=== PATIENT | female | born 1960 | race Caucasian/White ===

== ENCOUNTER 2018-04-19 04:30 | Emergency (ER) | payer MEDICARE, OTHER ==
[2018-04-19 05:59] LABS: ADD MAN DIFF? NO
[2018-04-19 06:01] LABS: BASO # 0.1 x10^3/uL (0.0-0.2); BASO % 1 % (0-3); EOS # 0.2 x10^3/uL (0.0-0.7); EOS % 3 % (0-3); HEMATOCRIT 34.9 % (36.0-47.0); HEMOGLOBIN 12.2 g/dL (12.0-15.5); LYMPH # 1.3 x10^3/uL (1.0-4.8); LYMPH % 23 % (24-48); MEAN CORPUSCULAR HEMOGLOBIN 34 pg (25-35); MEAN CORPUSCULAR HGB CONC 35 g/dL (31-37); MEAN CORPUSCULAR VOLUME 98 fL (79-100); MONO # 0.5 x10^3/uL (0.0-1.1); MONO % 8 % (0-9); NEUT # 3.8 x10^3uL (1.8-7.7); NEUT % 66 % (31-73); PLATELET COUNT 241 x10^3/uL (140-400); RED BLOOD COUNT 3.58 x10^6/uL (3.50-5.40); RED CELL DISTRIBUTION WIDTH 12.9 % (11.5-14.5); WHITE BLOOD COUNT 5.8 x10^3/uL (4.0-11.0)
[2018-04-19 06:17] LABS: ANION GAP 8 (6-14); BLOOD UREA NITROGEN 9 mg/dL (7-20); BUN/CREATININE RATIO 9 (6-20); CALCIUM 9.5 mg/dL (8.5-10.1); CARBON DIOXIDE 28 mmol/L (21-32); CHLORIDE 99 mmol/L (98-107); GFR 57.4; GLUCOSE 102 mg/dL (70-99); POTASSIUM 4.1 mmol/L (3.5-5.1); SODIUM 135 mmol/L (136-145)
[2018-04-19 06:23] LABS: ALBUMIN 3.6 g/dL (3.4-5.0); ALBUMIN/GLOBULIN RATIO 1.1 (1.0-1.7); ALK PHOS 130 U/L (46-116); ALT (SGPT) 27 U/L (14-59); AST (SGOT) 16 U/L (15-37); LIPASE 114 U/L (73-393); TOTAL BILIRUBIN 0.1 mg/dL (0.2-1.0)
[2018-04-19 06:25] LABS: TROPONINI < 0.017 ng/mL (0.000-0.055)
[2018-04-19] MEDS ORDERED: CONTRAST GIVEN. MC (06:30)
[2018-04-19] MEDS: IOHEXOL 300 MG/ML 100ML VIAL. IV (06:57)
[2018-04-19] MEDS: DICYCLOMINE 20 MG/2 ML AMPUL. IM (07:08)
[2018-04-19 07:46] LABS: BILIRUBIN,URINE NEGATIVE (NEG); CLARITY,URINE CLEAR; COLOR,URINE YELLOW; GLUCOSE,URINE NEGATIVE (NEG); NITRITE,URINE NEGATIVE (NEG); PROTEIN,URINE NEGATIVE (NEG-TRACE); UROBILINOGEN,URINE 0.2 mg/dL (0.2 mg/dL)
[2018-04-19 08:06] LABS: SQUAMOUS EPITHELIAL CELL,UR FEW /LPF
[2018-04-19 08:07] LABS: BACTERIA,URINE FEW /HPF (0-FEW); RBC,URINE 0 /HPF (0-2); WBC,URINE OCC /HPF (0-4)
== END 2018-04-19 09:42 | disposition home or self-care (01) ==
LOC: ER 04:30
DX: R10.84 Generalized abdominal pain (principal); R19.7 Diarrhea, unspecified; R11.2 Nausea with vomiting, unspecified; I11.9 Hypertensive heart disease without heart failure; E11.9 Type 2 diabetes mellitus without complications; K58.9 Irritable bowel syndrome, unspecified; Z90.49 Acquired absence of other specified parts of digestive tract; Z90.710 Acquired absence of both cervix and uterus; Z95.0 Presence of cardiac pacemaker; E11.43 Type 2 diabetes mellitus with diabetic autonomic (poly)neuropathy; K31.84 Gastroparesis; Z88.8 Allergy status to other drugs, medicaments and biological substances; Z88.4 Allergy status to anesthetic agent; Z91.040 Latex allergy status; Z88.5 Allergy status to narcotic agent; Z91.018 Allergy to other foods
CPT/HCPCS: 36415; 74177; 80053; 81001; 83690; 84484; 85025; 96372; 99285; J0500; Q9967

== ENCOUNTER 2018-05-15 07:00 | Emergency (ER) | payer MEDICARE, OTHER ==
[2018-05-15 07:27] LABS: BILIRUBIN,URINE NEGATIVE (NEG); CLARITY,URINE CLEAR; COLOR,URINE YELLOW; GLUCOSE,URINE NEGATIVE (NEG); NITRITE,URINE NEGATIVE (NEG); PH,URINE 6.5; PROTEIN,URINE NEGATIVE (NEG-TRACE); UROBILINOGEN,URINE 0.2 mg/dL (0.2 mg/dL)
[2018-05-15 07:36] LABS: BACTERIA,URINE MODERATE /HPF (0-FEW); SQUAMOUS EPITHELIAL CELL,UR MOD /LPF; WBC,URINE 20-40 /HPF (0-4)
[2018-05-15 07:37] LABS: RBC,URINE 0 /HPF (0-2)
[2018-05-15] MEDS: ONDANSETRON PF 4 MG/2 ML VIAL. IV (07:50)
[2018-05-15] MEDS: IV NORMAL SALINE 500ML BAG 500 ML IV (07:51)
[2018-05-15 07:56] LABS: ADD MAN DIFF? NO
[2018-05-15 08:01] LABS: BASO % 1 % (0-3); EOS # 0.1 x10^3/uL (0.0-0.7); EOS % 2 % (0-3); HEMATOCRIT 35.3 % (36.0-47.0); HEMOGLOBIN 12.2 g/dL (12.0-15.5); LYMPH % 15 % (24-48); MEAN CORPUSCULAR HEMOGLOBIN 34 pg (25-35); MEAN CORPUSCULAR HGB CONC 35 g/dL (31-37); MEAN CORPUSCULAR VOLUME 97 fL (79-100); MONO # 0.4 x10^3/uL (0.0-1.1); MONO % 7 % (0-9); NEUT # 5.1 x10^3uL (1.8-7.7); NEUT % 76 % (31-73); PLATELET COUNT 223 x10^3/uL (140-400); RED BLOOD COUNT 3.62 x10^6/uL (3.50-5.40); RED CELL DISTRIBUTION WIDTH 12.3 % (11.5-14.5); WHITE BLOOD COUNT 6.7 x10^3/uL (4.0-11.0)
[2018-05-15 08:05] LABS: ANION GAP 7 (6-14); BLOOD UREA NITROGEN 9 mg/dL (7-20); BUN/CREATININE RATIO 9 (6-20); CARBON DIOXIDE 29 mmol/L (21-32); CHLORIDE 106 mmol/L (98-107); GFR 57.4; GLUCOSE 118 mg/dL (70-99); SODIUM 142 mmol/L (136-145)
[2018-05-15 08:11] LABS: ALBUMIN 3.4 g/dL (3.4-5.0); ALK PHOS 111 U/L (46-116); ALT (SGPT) 26 U/L (14-59); AST (SGOT) 16 U/L (15-37); TOTAL BILIRUBIN 0.3 mg/dL (0.2-1.0); TOTAL PROTEIN 6.8 g/dL (6.4-8.2)
[2018-05-15] MEDS ORDERED: CONTRAST GIVEN. MC (08:15)
[2018-05-15] MEDS: IOHEXOL 300 MG/ML 100ML VIAL. IV (08:35)
== END 2018-05-15 10:22 | disposition home or self-care (01) ==
LOC: ER 07:00
DX: N39.0 Urinary tract infection, site not specified (principal); R11.2 Nausea with vomiting, unspecified; R19.7 Diarrhea, unspecified; E11.9 Type 2 diabetes mellitus without complications; I11.9 Hypertensive heart disease without heart failure; K58.9 Irritable bowel syndrome, unspecified; Z90.49 Acquired absence of other specified parts of digestive tract; Z95.0 Presence of cardiac pacemaker; Z90.710 Acquired absence of both cervix and uterus; Z88.5 Allergy status to narcotic agent; Z88.8 Allergy status to other drugs, medicaments and biological substances; Z88.4 Allergy status to anesthetic agent; Z91.040 Latex allergy status
CPT/HCPCS: 36415; 74177; 80053; 81001; 85025; 87086; 96361; 96374; 99285-25; J2405; J7040; Q9967

== ENCOUNTER 2021-08-29 10:52 | Emergency (ER) | payer MEDICARE, OTHER ==
[~2021-08-29] VITALS: Ht 180.3 cm; Wt 132.9 kg
[~2021-08-29 10:52] MED LIST: ARMO150T4 PO; CETI1TAB7 PO; FESO4TAB PO; GABA-585 PO; LAMO100T5 PO; LANS30CA PO; LEVO125T PO; LEVO750T31 PO; METR500T PO; MONT10TA49 PO; ONDA4TAB10 SL; RANI-376 PO; RISP0.5T24 PO; TEMA15CA PO
[2021-08-29 11:09] VITALS: BP 185/87
[2021-08-29] MEDS ORDERED: HYDROmorphone 2 MG/ML VIAL IVP ONE (11:15)
[2021-08-29] MEDS ORDERED: ONDANSETRON PF 4 MG/2 ML VIAL. IVP ONE (11:15)
[2021-08-29] MEDS ORDERED: IV NORMAL SALINE 1000ML BAG 1,000 ML IV SCH (11:15)
--- NOTE | 2021-08-29 11:19 | PHYS DOC ---
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 She reports the pain got worse this morning and is associated with some watery diarrhea. She denies any recent travel, blood in the diarrhea, antibiotic use or hospitalizations. The patient denies vomiting, fever, chills, chest pain, shortness of breath, urinary symptoms, cough, recent trauma, or any other complaints. Review of Systems: Review of Systems: Constitutional: Negative except what was mentioned in HPI. Eyes: Negative except what was mentioned in HPI. HENT: Negative except what was mentioned in HPI. Respiratory: Negative except what was mentioned in HPI. Cardiovascular: Negative except what was mentioned in HPI. GI: Negative except what was mentioned in HPI. : Negative except what was mentioned in HPI. Musculoskeletal: Negative except what was mentioned in HPI. Integument: Negative except what was mentioned in HPI. Neurologic: Negative except what was mentioned in HPI. Heart Score: C/O Chest Pain: No Family History: Family History: Noncontributory Allergies: Allergies: Allergies Coded Allergies Type Severity Reaction Last Updated Verified adhesive tape Allergy Severe blisters 09/21/17 Yes chlorpromazine Allergy Severe Hypotension 04/19/18 Yes latex Allergy Intermediate Rash 04/19/18 Yes nabumetone Allergy Intermediate Constipation, Vomiting, and Itching 04/19/18 Yes pantoprazole Allergy Intermediate Vomiting and itching 04/19/18 Yes thiopental Allergy Intermediate vomiting 04/19/18 Yes propoxyphene Allergy Mild vomiting 04/19/18 Yes codeine Adverse Reaction Intermediate vomit 09/21/17 Yes fentanyl Adverse Reaction Intermediate vomit 09/21/17 Yes morphine Adverse Reaction Intermediate vomit 09/21/17 Yes naloxone Adverse Reaction Intermediate vomit 09/21/17 Yes Physical Exam: PE: Constitutional: No acute distress, non-toxic appearance. HENT: Atraumatic, bilateral external ears normal, nose normal. Eyes: PERRLA, EOMI, conjunctiva normal, no discharge. Neck: Normal range of motion, supple, no stridor. Cardiovascular: Heart rate regular rhythm. 2+ radial pulses Lungs & Thorax: No respiratory distress, symmetrical expansion. Abdomen: Right lower quadrant tenderness palpation, guarding upon palpation of the right lower quadrant Skin: Warm, dry. Extremities: No tenderness, no cyanosis, ROM intact, no edema. Neurologic: Alert and oriented X 3, normal motor function, normal sensory function, no focal deficits noted. Non ataxic gait. GCS 15. Psychologic: Affect normal, judgment normal, mood normal. Current Patient Data: Labs: Laboratory Tests Test 08/29/21 11:05 08/29/21 11:12 08/29/21 11:15 Urine Collection Type Unknown Urine Color Yellow Urine Clarity Clear Urine pH 6.0 (<5.0-8.0) Urine Specific Pat[place] 1.015 (1.000-1.030) Urine Protein Negative mg/dL (NEG-TRACE) Urine Glucose (UA) Negative mg/dL (NEG) Urine Ketones (Stick) Negative mg/dL (NEG) Urine Blood Negative (NEG) Urine Nitrite Negative (NEG) Urine Bilirubin Negative (NEG) Urine Urobilinogen Dipstick 0.2 mg/dL (0.2 mg/dL) Urine Leukocyte Esterase Moderate (NEG) Urine RBC 0 /HPF (0-2) Urine WBC 5-10 /HPF (0-4) Urine Squamous Epithelial Cells Mod /LPF Urine Renal Epithelial Cells Occ /LPF Urine Bacteria 0 /HPF (0-FEW) Bedside Urine HCG, Qualitative Hcg negative (Negative) White Blood Count 5.7 x10^3/uL (4.0-11.0) Red Blood Count 4.08 x10^6/uL (3.50-5.40) Hemoglobin 13.1 g/dL (12.0-15.5) Hematocrit 38.8 % (36.0-47.0) Mean Corpuscular Volume 95 fL (79-100) Mean Corpuscular Hemoglobin 32 pg (25-35) Mean Corpuscular Hemoglobin Concent 34 g/dL (31-37) Red Cell Distribution Width 13.0 % (11.5-14.5) Platelet Count 192 x10^3/uL (140-400) Neutrophils (%) (Auto) 67 % (31-73) Lymphocytes (%) (Auto) 25 % (24-48) Monocytes (%) (Auto) 7 % (0-9) Eosinophils (%) (Auto) 0 % (0-3) Basophils (%) (Auto) 1 % (0-3) Neutrophils # (Auto) 3.8 x10^3/uL (1.8-7.7) Lymphocytes # (Auto) 1.4 x10^3/uL (1.0-4.8) Monocytes # (Auto) 0.4 x10^3/uL (0.0-1.1) Eosinophils # (Auto) 0.0 x10^3/uL (0.0-0.7) Basophils # (Auto) 0.0 x10^3/uL (0.0-0.2) Sodium Level 142 mmol/L (136-145) Potassium Level 4.5 mmol/L (3.5-5.1) Chloride Level 106 mmol/L (98-107) Carbon Dioxide Level 29 mmol/L (21-32) Anion Gap 7 (6-14) Blood Urea Nitrogen 13 mg/dL (7-20) Creatinine 1.2 mg/dL (0.6-1.0) Estimated GFR (Cockcroft-Gault) 46.0 BUN/Creatinine Ratio 11 (6-20) Glucose Level 99 mg/dL (70-99) Calcium Level 9.6 mg/dL (8.5-10.1) Total Bilirubin 0.5 mg/dL (0.2-1.0) Aspartate Amino Transf (AST/SGOT) 21 U/L (15-37) Alanine Aminotransferase (ALT/SGPT) 42 U/L (14-59) Alkaline Phosphatase 107 U/L (46-116) Total Protein 7.4 g/dL (6.4-8.2) Albumin 3.7 g/dL (3.4-5.0) Albumin/Globulin Ratio 1.0 (1.0-1.7) Lipase 39 U/L (73-393) Vital Signs: Vital Signs Date Time Temp Pulse Resp B/P (MAP) Pulse Ox O2 Delivery O2 Flow Rate FiO2 08/29/21 11:31 22 96 Room Air 08/29/21 11:09 98.5 71 16 185/87 (119) 96 Room Air 98.5 Radiology/Procedures: Radiology/Procedures: CT THORAX WO History: Pain. Edema on abdomen CT. Technique: Noncontrast CT of the chest was performed. Coronal and sagittal reconstructions were performed. Exposure: One or more of the following individualized dose reduction techniques were utilized for this examination: 1. Automated exposure control 2. Adjustment of the mA and/or kV according to patient size 3. Use of iterative reconstruction technique. Comparison: None Findings: Chest: Moderate left pleural effusion. Left pleural shunt catheter noted. Left- sided pacemaker. No pathologic lymphadenopathy. Mild left lingular and left lower lobe groundglass linear opacities. Upper abdomen: Prior cholecystectomy. Bones: No pathologic osseous lesions. Impression: 1. Moderate left pleural effusion. Left pleural shunt catheter noted. 2. Lingular and left lower lobe linear groundglass opacities, may represent atelectasis. Recommend correlation for infectious or inflammatory process. Electronically signed by: Tc Hargrove DO (08/29/2021 1:12 PM) CT ABDOMEN+PELVIS W History: Reason: abd pain, hx of multiple abd surgeries / Spl. Instructions: OMNI 300 INJ. 60 MLS / History: Technique: After the administration of intravenous contrast, CT imaging was performed of the abdomen and pelvis. Multiplanar images are reviewed. Exposure: One or more of the following individualized dose reduction techniques were utilized for this examination: 1. Automated exposure control 2. Adjustment of the mA and/or kV according to patient size 3. Use of iterative reconstruction technique. Comparison: May 15, 2018 Findings: Lower chest: Moderate left pleural effusion. Left lower lobe and lingular gr oundglass opacities. Partially imaged left pleural catheter. Abdomen and pelvis: The liver, spleen, and adrenal glands are unremarkable. Fatty infiltration of the pancreas. Prior cholecystectomy. No biliary ductal dilatation for postcholecystectomy state. Patent portal vein. Increased right posterior renal hypodense lesion measures 2.1 x 2.2 cm. No hydronephrosis. No renal calculus. Decompressed urinary bladder. Appendix is not well seen. No evidence of bowel obstruction. No pathologic lymphadenopathy no ascites. Prior hysterectomy. Mild atheromatous plaque throughout the nonaneurysmal abdominal aorta and branch vessels. Bones: Multilevel lumbar spondylosis most prominent T11-T12. Multilevel Schmorl's nodes. Impression: 1. No acute abdominal or pelvic pathology. 2. Moderate left pleural effusion with adjacent groundglass linear opacities. 3. Increased right renal hypodense lesion, may represent complicated cyst. Recommend ultrasound to further evaluate for solid lesion. Electronically signed by: Tc Hargrove DO (08/29/2021 1:22 PM) Course & Med Decision Making: Course & Med Decision Making Objective work-up is as above, not concerning for an acute process. The patient has been told in the past that she has a chronic left pleural effusion. There is no evidence of anything new today. The patient appears stable for discharge home. Patient otherwise had no further complaints. Dilaudid 0.5 mg IV controlled her pain and her vital signs are stable. She was advised to follow- up with her primary care physician next week as well as return to the emergency department if her course changes at home. Departure Departure Impression: Primary Impression: Abdominal pain Disposition: 01 HOME / SELF CARE / HOMELESS Condition: STABLE Referrals: ALAN DORSEY (PCP) Patient Instructions: Abdominal Pain, [id number] Additional Instructions: You were seen in the emergency department for abdominal pain. Your tests did not show any obvious acute cause of your symptoms and your physical exam was non concerning for a dangerous disease process at this time. This however can change early in a disease course. You must return to the ED if you develop any new or worrisome symptoms for another exam. - Make sure to drink plenty of fluids at home - You may take a gentle laxative such as Miralax (over the counter) for bowel comfort. - Avoid drinking alcohol while you are having abdominal pain as this may worsen symptoms. - Return to the ER if you are not able to tolerate water and/or a normal diet, have increased pain or a change in character of your pain, develop a fever (>100.3 F), have nausea, vomiting and/or diarrhea that is unable to be treated at home, pass out, and/or you are not able to perform you normal daily activity. ALFREDO CABRERA DO Aug 29, 2021 11:19
[2021-08-29 11:31] LABS: BILIRUBIN,URINE NEGATIVE (NEG); CLARITY,URINE CLEAR; COLOR,URINE YELLOW; NITRITE,URINE NEGATIVE (NEG); PROTEIN,URINE NEGATIVE (NEG-TRACE); UROBILINOGEN,URINE 0.2 mg/dL (0.2 mg/dL)
[2021-08-29 11:32] LABS: BASO % 1 % (0-3); EOS % 0 % (0-3); HEMATOCRIT 38.8 % (36.0-47.0); HEMOGLOBIN 13.1 g/dL (12.0-15.5); LYMPH # 1.4 x10^3/uL (1.0-4.8); LYMPH % 25 % (24-48); MEAN CORPUSCULAR HEMOGLOBIN 32 pg (25-35); MEAN CORPUSCULAR HGB CONC 34 g/dL (31-37); MEAN CORPUSCULAR VOLUME 95 fL (79-100); MONO # 0.4 x10^3/uL (0.0-1.1); MONO % 7 % (0-9); NEUT # 3.8 x10^3/uL (1.8-7.7); NEUT % 67 % (31-73); PLATELET COUNT 192 x10^3/uL (140-400); RED BLOOD COUNT 4.08 x10^6/uL (3.50-5.40); WHITE BLOOD COUNT 5.7 x10^3/uL (4.0-11.0)
[2021-08-29 11:41] LABS: CALCIUM 9.6 mg/dL (8.5-10.1); CREATININE 1.2 mg/dL (0.6-1.0); POTASSIUM 4.5 mmol/L (3.5-5.1)
[2021-08-29 11:46] LABS: ALBUMIN 3.7 g/dL (3.4-5.0); TOTAL BILIRUBIN 0.5 mg/dL (0.2-1.0); TOTAL PROTEIN 7.4 g/dL (6.4-8.2)
[2021-08-29 11:53] LABS: BACTERIA,URINE 0 /HPF (0-FEW); RBC,URINE 0 /HPF (0-2)
[2021-08-29] MEDS ORDERED: IOHEXOL 300 MG/ML 100ML VIAL. IV ONE (12:15)
--- NOTE | 2021-08-29 13:14 | RAD ---
CT THORAX WO History: Pain. Edema on abdomen CT. Technique: Noncontrast CT of the chest was performed. Coronal and sagittal reconstructions were perfo rmed. Exposure: One or more of the following individualized dose reduction techniques were utilized for thi s examination: 1. Automated exposure control 2. Adjustment of the mA and/or kV according to patient size 3. Use of iterative reconstruction technique. Comparison: None Findings: Chest: Moderate left pleural effusion. Left pleural shunt catheter noted. Left-sided pacemaker. No pa thologic lymphadenopathy. Mild left lingular and left lower lobe groundglass linear opacities. Upper abdomen: Prior cholecystectomy. Bones: No pathologic osseous lesions. Impression: 1. Moderate left pleural effusion. Left pleural shunt catheter noted. 2. Lingular and left lower lobe linear groundglass opacities, may represent atelectasis. Recommend c orrelation for infectious or inflammatory process. Electronically signed by: Tc Hargrove DO (08/29/2021 1:12 PM) [facility]
--- NOTE | 2021-08-29 13:24 | RAD ---
CT ABDOMEN+PELVIS W History: Reason: abd pain, hx of multiple abd surgeries / Spl. Instructions: OMNI 300 INJ. 60 MLS / H istory: Technique: After the administration of intravenous contrast, CT imaging was performed of the abdomen and pelvis. Multiplanar images are reviewed. Exposure: One or more of the following individualized dose reduction techniques were utilized for thi s examination: 1. Automated exposure control 2. Adjustment of the mA and/or kV according to patient size 3. Use of iterative reconstruction technique. Comparison: May 15, 2018 Findings: Lower chest: Moderate left pleural effusion. Left lower lobe and lingular groundglass opacities. Part ially imaged left pleural catheter. Abdomen and pelvis: The liver, spleen, and adrenal glands are unremarkable. Fatty infiltration of the pancreas. Prior cholecystectomy. No biliary ductal dilatation for postcholecystectomy state. Patent portal vein. Increased right posterior renal hypodense lesion measures 2.1 x 2.2 cm. No hydronephrosis. No renal c alculus. Decompressed urinary bladder. Appendix is not well seen. No evidence of bowel obstruction. No pathologic lymphadenopathy no ascites . Prior hysterectomy. Mild atheromatous plaque throughout the nonaneurysmal abdominal aorta and branc h vessels. Bones: Multilevel lumbar spondylosis most prominent T11-T12. Multilevel Schmorl's nodes. Impression: 1. No acute abdominal or pelvic pathology. 2. Moderate left pleural effusion with adjacent groundglass linear opacities. 3. Increased right renal hypodense lesion, may represent complicated cyst. Recommend ultrasound to f swati evaluate for solid lesion. Electronically signed by: Tc Hargrove DO (08/29/2021 1:22 PM) [facility]
== END 2021-08-29 14:45 | disposition home or self-care (01) ==
LOC: ER 10:52
DX: R10.31 Right lower quadrant pain (principal); R19.7 Diarrhea, unspecified; E11.9 Type 2 diabetes mellitus without complications; I11.9 Hypertensive heart disease without heart failure; K58.9 Irritable bowel syndrome, unspecified; Z90.49 Acquired absence of other specified parts of digestive tract; Z90.89 Acquired absence of other organs; Z90.710 Acquired absence of both cervix and uterus; Z95.0 Presence of cardiac pacemaker; Z88.8 Allergy status to other drugs, medicaments and biological substances; Z91.040 Latex allergy status; Z88.5 Allergy status to narcotic agent
CPT/HCPCS: 36415; 71250; 74177; 80053; 81001; 81025; 83690; 85025; 87086; 87147; 96361; 96374; 96375; 99285; J1170; J2405; J7030; Q9967